=== PATIENT | female | born 1995 | race Caucasian/White ===

== ENCOUNTER 2016-09-12 15:33 | Emergency (ER) | payer OTHER ==
[2016-09-12 16:16] VITALS: BP 170/100; PULSE 105; RESP 18; TEMP 97.5
--- NOTE | 2016-09-12 17:47 | ED ---
General Adult HPI - General Chief complaint: Extremity Injury, Upper Stated complaint: Wrist Pain Time Seen by Provider: 09/12/16 17:12 Source: patient, RN notes reviewed Mode of arrival: ambulatory Limitations: no limitations - History of Present Illness Initial comments: Patient 20-year-old female who presents emergency room today with a chief complaint of left sided wrist pain. Patient does admit to pain over the distal left radius. States worse with movements of external rotation and flexion. States worse she tries to push herself up with his hand. States started a little bit 2 days ago but greatly increased yesterday. Denies any specific injury or trauma. Denies any other complaints. States she has not tried any medications at home for this. Patient denies any recent fever, chills, shortness of breath, chest pain, back pain, abdominal pain, nausea or vomiting, numbness or tingling, dysuria or hematuria, constipation or diarrhea, headaches or visual changes, or any other complaints. - Related Data Home Medications Medication Instructions Recorded Confirmed Albuterol Inhaler [Ventolin Hfa 1 - 2 puff INHALATION RT-Q6H PRN 04/05/16 Inhaler] Previous Rx's Medication Instructions Recorded Ibuprofen [Motrin] 600 mg PO Q8HR PRN #30 tab 09/06/14 Ibuprofen [Motrin] 600 mg PO Q6HR PRN #40 day 09/12/16 Allergies Allergy/AdvReac Type Severity Reaction Status Date / Time venom-honey bee Allergy Swelling Verified 09/12/16 16:16 [bee venom (honey bee)] Review of Systems ROS Statement: Those systems with pertinent positive or pertinent negative responses have been documented in the HPI. ROS Other: All systems not noted in ROS Statement are negative. Past Medical History Past Medical History: Asthma, Thyroid Disorder Additional Past Medical History / Comment(s): fx arm as a child obesity History of Any Multi-Drug Resistant Organisms: None Reported Past Surgical History: No Surgical Hx Reported Additional Past Surgical History / Comment(s): april Past Psychological History: No Psychological Hx Reported Smoking Status: Never smoker Past Alcohol Use History: None Reported Past Drug Use History: None Reported General Exam - General Exam Comments Initial Comments: General: The patient is awake and alert, in no distress, and does not appear acutely ill. Neck: The neck is supple, there is no tenderness or JVD. Cardiovascular: There is a regular rate and rhythm. No murmur, rub or gallop is appreciated. Respiratory: Lungs are clear to auscultation, respirations are non-labored, breath sounds are equal. No wheezes, stridor, rales, or rhonchi. Musculoskeletal: Normal appearance of left hand was obvious swelling bruising or deformity. Shows good range of motion all directions. Sensations are intact pulses equal bilaterally 2+. Patient does have mild tenderness over the lateral aspect of the left wrist. Neurological: A&O x 3. CN II-XII intact, There are no obvious motor or sensory deficits. Coordination appears grossly intact. Speech is normal. Skin: Skin is warm and dry and no rashes or lesions are noted. Psychiatric: Normal mood and affect. Limitations: no limitations Course Vital Signs 09/12/16 16:13 Temperature 97.5 F L Pulse Rate 105 H Respiratory 18 Rate Blood Pressure 170/100 O2 Sat by Pulse 99 Oximetry Medical Decision Making - Medical Decision Making Patient's x-ray reviewed and are unremarkable. Patient will be treated for tendinitis. Advised to ice elevate the affected area. Pako wrapped. Emergency room. He'll be discharged home with anti-inflammatories. Disposition Clinical Impression: Wrist sprain Disposition: HOME SELF-CARE Condition: Good Instructions: Wrist Injury (ED) Additional Instructions: Please use anti-inflammatories as prescribed. Please continue to ice elevate the affected area. Please follow-up with orthopedics in 7-10 days if symptoms aren't improved. Please return to emergency room if the symptoms increase or worsen or for any other concerns. Prescriptions: Ibuprofen [Motrin] 600 mg PO Q6HR PRN #40 day PRN Reason: Pain Referrals: Timmy Helms MD [Primary Care Provider] - 1-2 days Jose Angel Cabello MD [STAFF PHYSICIAN] - 1-2 days Time of Disposition: 17:56
--- NOTE | 2016-09-12 17:51 | XR ---
EXAMINATION TYPE: XR wrist complete LT DATE OF EXAM: 09/12/2016 5:34 PM COMPARISON: NONE HISTORY: Wrist pain TECHNIQUE: 4 views FINDINGS: I see no fracture nor dislocation. Joint spaces are normal. There no pathologic calcificati ons. IMPRESSION: Negative left wrist exam.
[2016-09-12] MEDS: IBUPROFEN 600 MG TAB PO STA (18:03)
== END 2016-09-12 18:13 | disposition home or self-care (01) ==
LOC: EC 15:33
DX: S63.502A Unspecified sprain of left wrist, initial encounter (principal); J45.909 Unspecified asthma, uncomplicated; Z91.030 Bee allergy status; X58.XXXA Exposure to other specified factors, initial encounter
CPT/HCPCS: 99283

== ENCOUNTER 2017-02-21 16:24 | Emergency (ER) | payer OTHER ==
[2017-02-21 16:30] VITALS: TEMP 98.5
[2017-02-21] MEDS ORDERED: ONDANSETRON 4 MG/2 ML VIAL IVP STA (16:38)
[2017-02-21] MEDS ORDERED: SODIUM CHLORIDE 0.9% 500 ML IV STA (16:38)
[2017-02-21] MEDS ORDERED: DICYCLOMINE 10 MG/ML 2 ML AMP IM STA (16:38)
[2017-02-21 16:58] LABS: Basophils % (A) 0 %; Eosinophils # (A) 0.1 k/uL (0-0.7); Eosinophils % (A) 1 %; HCT 36.5 % (34.0-46.0); HDW 2.83; HGB 11.6 gm/dL (11.4-16.0); Hypochromasia Moderate; Luc # (Auto) 0.23; Luc % (Auto) 2; Lymphocytes # (A) 1.6 k/uL (1.0-4.8); Lymphocytes % (A) 14 %; MCH 23.8 pg (25.0-35.0); MCHC 31.9 g/dL (31.0-37.0); MCV 74.5 fL (80.0-100.0); Mean Platelet Volume 6.7; Microcytosis Slight; Monocytes # (A) 0.5 k/uL (0-1.0); Monocytes % (A) 4 %; Neutrophils # (A) 9.7 k/uL (1.3-7.7); Neutrophils % (A) 80 %; WBC 12.2 k/uL (3.8-10.6); WBC (Perox) 12.43
[2017-02-21 17:00] LABS: Amorphous Sediment,Urine Occasional /hpf; Appearance,Urine Cloudy (Clear); Bacteria,Urine Occasional /hpf; Bilirubin,Urine Negative (Negative); Glucose,Urine (UA) Negative (Negative); Ketones,Urine Negative (Negative); Leukocyte Esterase,Urine Trace (Negative); Mucus,Urine Moderate /hpf; Nitrite,Urine Negative (Negative); Particle Count 8817; Protein,Urine Trace (Negative); RBC,Urine 1 /hpf (0-5); Specific Gravity,Urine 1.022 (1.001-1.035); Squamous Epithelial Cell,Urine 8 /hpf (0-4); UA Billing (MACRO vs. MICRO) MICRO; Urobilinogen,Urine <2.0 mg/dL (<2.0); WBC,Urine 15 /hpf (0-5)
[2017-02-21 17:10] LABS: ALT 25 U/L (9-52); AST 18 U/L (14-36); Alkaline Phosphatase 115 U/L (38-126); Amylase <30 U/L (30-110); Anion Gap 12 mmol/L; Blood Urea Nitrogen 9 mg/dL (7-17); Calcium 9.1 mg/dL (8.4-10.2); Carbon Dioxide 25 mmol/L (22-30); Chloride 103 mmol/L (98-107); Glucose 83 mg/dL (74-99); Non-African American GFR(MDRD) >60 (>60 ml/min/1.73 sqM); Sodium 140 mmol/L (137-145); Total Bilirubin 0.4 mg/dL (0.2-1.3); Total Protein 7.9 g/dL (6.3-8.2)
[2017-02-21] MEDS ORDERED: RX INFO: IV CONTRAST WAS GIVEN 1 EACH MISC MISCELLANE PRN (17:10)
--- NOTE | 2017-02-21 17:10 | ED ---
General Adult HPI - General Chief complaint: Abdominal Pain Stated complaint: Abd Pain Time Seen by Provider: 02/21/17 16:31 Source: patient, RN notes reviewed Mode of arrival: ambulatory Limitations: no limitations - History of Present Illness Initial comments: 21 yo female presents to the ER with cc of generalized abdominal pain. Patient states she's had this generalized abdominal pain with some nausea and diarrhea for the past week or so. Patient states is just been progressively staying the same and not going away so she was concerned. Patient denies any fever chills cough cold runny nose with this. Patient denies any one else sick with this or any history of this in the past. Patient states that she is not currently having any other symptoms at this time. Patient denies any relation to eating or drinking. Patient denies any recent fever, chills, shortness of breath, chest pain, back pain, vomiting, numbness or tingling, dysuria or hematuria, constipation, headaches or visual changes, or any other current symptoms. - Related Data Home Medications Medication Instructions Recorded Confirmed Albuterol Inhaler [Ventolin Hfa 1 - 2 puff INHALATION RT-Q6H PRN 04/05/16 Inhaler] Previous Rx's Medication Instructions Recorded Ibuprofen [Motrin] 600 mg PO Q8HR PRN #30 tab 09/06/14 Ibuprofen [Motrin] 600 mg PO Q6HR PRN #40 day 09/12/16 Ciprofloxacin HCl [Cipro] 500 mg PO Q12HR #14 tablet 02/21/17 Allergies Allergy/AdvReac Type Severity Reaction Status Date / Time venom-honey bee Allergy Swelling Verified 02/21/17 16:30 [bee venom (honey bee)] Review of Systems ROS Statement: Those systems with pertinent positive or pertinent negative responses have been documented in the HPI. ROS Other: All systems not noted in ROS Statement are negative. Past Medical History Past Medical History: Asthma, Thyroid Disorder Additional Past Medical History / Comment(s): fx arm as a child obesity History of Any Multi-Drug Resistant Organisms: None Reported Past Surgical History: No Surgical Hx Reported Additional Past Surgical History / Comment(s): april Past Psychological History: No Psychological Hx Reported Smoking Status: Never smoker Past Alcohol Use History: None Reported Past Drug Use History: None Reported General Exam - General Exam Comments Initial Comments: General: The patient is awake and alert, in no distress, and does not appear acutely ill. Eye: Pupils are equal, round. Ears, nose, mouth and throat: There are moist mucous membranes. Neck: The neck is supple, there is no tenderness. Cardiovascular: There is a regular rate and rhythm. No murmur, rub or gallop is appreciated. Respiratory: Lungs are clear to auscultation, respirations are non-labored, breath sounds are equal. No wheezes, stridor, rales, or rhonchi. Gastrointestinal: Soft, non-distended, non-tender abdomen without masses or organomegaly noted. There is no rebound or guarding present. No CVA tenderness. Bowel sounds are unremarkable. Back: There is no tenderness to palpation in the midline. There is no obvious deformity. No rashes noted. Musculoskeletal: Normal ROM, no tenderness, There is no pedal edema. There is no calf tenderness or swelling. Sensation intact. Pulses equal bilaterally 2+. Neurological: CN II-XII intact, There are no obvious motor or sensory deficits. Coordination appears grossly intact. Speech is normal. Skin: Skin is warm and dry and no rashes or lesions are noted. Psychiatric: Cooperative, appropriate mood & affect, normal judgment. Limitations: no limitations Course Vital Signs 02/21/17 02/21/17 16:27 18:02 Temperature 98.5 F Pulse Rate 107 H 92 Respiratory 20 16 Rate Blood Pressure 178/78 135/69 O2 Sat by Pulse 96 99 Oximetry Medical Decision Making - Medical Decision Making 21-year-old female presents emergency Department chief complaint of generalized abdominal pain.at this time patient's urine is suspicious for possible UTI. We will start the patient on Cipro for home. We did discuss follow-up return parameters all patient's questions. She stated she understood and she was given splint. She'll be discharged. - Lab Data Result diagrams: 02/21/17 16:46 02/21/17 16:46 Lab Results 02/21/17 02/21/17 02/21/17 Range/Units 16:46 16:46 16:46 WBC 12.2 H (3.8-10.6) k/uL RBC 4.90 (3.80-5.40) m/uL Hgb 11.6 (11.4-16.0) gm/dL Hct 36.5 (34.0-46.0) % MCV 74.5 L (80.0-100.0) fL MCH 23.8 L (25.0-35.0) pg MCHC 31.9 (31.0-37.0) g/dL RDW 15.0 (11.5-15.5) % Plt Count 482 H (150-450) k/uL Neutrophils % 80 % Lymphocytes % 14 % Monocytes % 4 % Eosinophils % 1 % Basophils % 0 % Neutrophils # 9.7 H (1.3-7.7) k/uL Lymphocytes # 1.6 (1.0-4.8) k/uL Monocytes # 0.5 (0-1.0) k/uL Eosinophils # 0.1 (0-0.7) k/uL Basophils # 0.0 (0-0.2) k/uL Hypochromasia Moderate Microcytosis Slight Sodium 140 (137-145) mmol/L Potassium 4.0 (3.5-5.1) mmol/L Chloride 103 (98-107) mmol/L Carbon Dioxide 25 (22-30) mmol/L Anion Gap 12 mmol/L BUN 9 (7-17) mg/dL Creatinine 0.62 (0.52-1.04) mg/dL Est GFR (MDRD) Af Amer >60 (>60 ml/min/1.73 sqM) Est GFR (MDRD) Non-Af >60 (>60 ml/min/1.73 sqM) Glucose 83 (74-99) mg/dL Calcium 9.1 (8.4-10.2) mg/dL Total Bilirubin 0.4 (0.2-1.3) mg/dL AST 18 (14-36) U/L ALT 25 (9-52) U/L Alkaline Phosphatase 115 (38-126) U/L Total Protein 7.9 (6.3-8.2) g/dL Albumin 4.3 (3.5-5.0) g/dL Amylase <30 L (30-110) U/L Lipase 28 (23-300) U/L Urine Color Urine Appearance (Clear) Urine pH (5.0-8.0) Ur Specific [place] (1.001-1.035) Urine Protein (Negative) Urine Glucose (UA) (Negative) Urine Ketones (Negative) Urine Blood (Negative) Urine Nitrite (Negative) Urine Bilirubin (Negative) Urine Urobilinogen (<2.0) mg/dL Ur Leukocyte Esterase (Negative) Urine RBC (0-5) /hpf Urine WBC (0-5) /hpf Ur Squamous Epith Cells (0-4) /hpf Amorphous Sediment (None) /hpf Urine Bacteria (None) /hpf Urine Mucus (None) /hpf Urine HCG, Qual Not Detected (Not Detectd) 02/21/17 Range/Units 16:46 WBC (3.8-10.6) k/uL RBC (3.80-5.40) m/uL Hgb (11.4-16.0) gm/dL Hct (34.0-46.0) % MCV (80.0-100.0) fL MCH (25.0-35.0) pg MCHC (31.0-37.0) g/dL RDW (11.5-15.5) % Plt Count (150-450) k/uL Neutrophils % % Lymphocytes % % Monocytes % % Eosinophils % % Basophils % % Neutrophils # (1.3-7.7) k/uL Lymphocytes # (1.0-4.8) k/uL Monocytes # (0-1.0) k/uL Eosinophils # (0-0.7) k/uL Basophils # (0-0.2) k/uL Hypochromasia Microcytosis Sodium (137-145) mmol/L Potassium (3.5-5.1) mmol/L Chloride (98-107) mmol/L Carbon Dioxide (22-30) mmol/L Anion Gap mmol/L BUN (7-17) mg/dL Creatinine (0.52-1.04) mg/dL Est GFR (MDRD) Af Amer (>60 ml/min/1.73 sqM) Est GFR (MDRD) Non-Af (>60 ml/min/1.73 sqM) Glucose (74-99) mg/dL Calcium (8.4-10.2) mg/dL Total Bilirubin (0.2-1.3) mg/dL AST (14-36) U/L ALT (9-52) U/L Alkaline Phosphatase (38-126) U/L Total Protein (6.3-8.2) g/dL Albumin (3.5-5.0) g/dL Amylase (30-110) U/L Lipase (23-300) U/L Urine Color Yellow Urine Appearance Cloudy H (Clear) Urine pH 6.0 (5.0-8.0) Ur Specific [place] 1.022 (1.001-1.035) Urine Protein Trace H (Negative) Urine Glucose (UA) Negative (Negative) Urine Ketones Negative (Negative) Urine Blood Negative (Negative) Urine Nitrite Negative (Negative) Urine Bilirubin Negative (Negative) Urine Urobilinogen <2.0 (<2.0) mg/dL Ur Leukocyte Esterase Trace H (Negative) Urine RBC 1 (0-5) /hpf Urine WBC 15 H (0-5) /hpf Ur Squamous Epith Cells 8 H (0-4) /hpf Amorphous Sediment Occasional H (None) /hpf Urine Bacteria Occasional H (None) /hpf Urine Mucus Moderate H (None) /hpf Urine HCG, Qual (Not Detectd) - Radiology Data Radiology results: report reviewed, image reviewed Disposition Clinical Impression: UTI (urinary tract infection) Disposition: HOME SELF-CARE Condition: Stable Instructions: Urinary Tract Infection in Women (ED) Additional Instructions: Please use medication as discussed. Please follow up with family doctor if symptoms have not improved over the next two days. Please return to the emergency room if your symptoms increase or worsen or for any other concerns. Prescriptions: Ciprofloxacin HCl [Cipro] 500 mg PO Q12HR #14 tablet Referrals: Timmy Helms MD [Primary Care Provider] - 1-2 days Time of Disposition: 18:12
[2017-02-21 18:02] VITALS: BP 135/69; PULSE 92; RESP 16
--- NOTE | 2017-02-21 18:09 | CT ---
EXAMINATION TYPE: CT abdomen pelvis w con DATE OF EXAM: 02/21/2017 COMPARISON: NONE HISTORY: ABDOMINAL PAIN WITH NAUSEA. CT DLP: 4239.6 mGycm Automated exposure control for dose reduction was used. TECHNIQUE: Helical acquisition of images was performed from the lung bases through the pelvis. CONTRAST: Performed without Oral Contrast and with IV Contrast, patient injected with 100 mL of Omnipaque 300. FINDINGS: Lung bases are clear. There is no pleural effusion. Heart size is normal. Liver appears normal. Spleen is large and measures 16 cm in length. There is no sign of pancreatic ma ss. Gallbladder appears normal. Bile ducts are not dilated. There is no adrenal mass. The kidneys show satisfactory contrast opacification. There is no hydroneph rosis. Ureters are not dilated. I see no intestinal wall thickening. There are no dilated loops. Bladder distends smoothly. There is no evidence of a pelvic mass. There are bilateral 1.5 to 2 cm ovarian cysts. Appendix is not definite ly seen. There is no sign of appendicitis. There is mild subcutaneous edema over the posterior lower lumbar spine. IMPRESSION: SPLENOMEGALY. NO FOCAL LIVER DEFECT.
== END 2017-02-21 18:35 | disposition home or self-care (01) ==
LOC: EC 16:24
DX: N39.0 Urinary tract infection, site not specified (principal); R10.84 Generalized abdominal pain; R19.7 Diarrhea, unspecified; R11.0 Nausea; Z91.030 Bee allergy status
CPT/HCPCS: 36415; 80053; 82150; 83690; 85025; 81001; 81025; 74177; 99284; 96374; 96372; J0500; J2405; Q9967

== ENCOUNTER → 2018-06-25 | Outpatient (CLI) | payer OTHER ==
[2018-06-25 19:36] LABS: Iron Saturation 6.14 (12.00-45.00)
== END | disposition home or self-care (01) ==
LOC: LABWHC1 14:00
PROVIDERS: ATTEND Nurse Practitioner
DX: D50.0 Iron deficiency anemia secondary to blood loss (chronic) (principal)
CPT/HCPCS: 36415; 82728; 83540; 83550

== ENCOUNTER → 2018-06-26 | Outpatient (CLI) | payer OTHER ==
--- NOTE | 2018-06-27 10:56 | US ---
EXAMINATION TYPE: US pelvis complete transvag DATE OF EXAM: 06/26/2018 COMPARISON: CT 2017 CLINICAL HISTORY: Z97.5 IUD placement. Large body habitus limited exam morbid obesity TECHNIQUE: Transvaginal (TV) and Transabdominal (TA) . Transabdominal sonographic images of the pel vis were acquired. Transvaginal sonographic images were medically necessary to better assess the fol lowing anatomy: IUD placement Date of LMP: 06/19/2018 EXAM MEASUREMENTS: Uterus: 7.3 x 2.7 x 3.7 cm Endometrial Stripe: 0.3 cm Right Ovary: 1.8 x 1.5 x 1.8 cm Left Ovary: 1.3 x 1.6 cm 1. Uterus: small nabothian cyst 0.4 x0.2 x 0.3 cm 2. Endometrium: wnl 3. Right Ovary: Multiple follicles with a dominant follicle measuring 1.0 x 1.0 x 0.7 cm 4. Left Ovary: Obscured by overlying bowel gas 5. Bilateral Adnexa: Obscured by overlying bowel gas 6. Posterior cul-de-sac: wnl very limited visualization do to morbid obesity . IMPRESSION: The wood cabinetmaker notes the exam is limited secondary to patient body habitus. Despite orellana svaginal imaging the intrauterine device is not clearly identified. Pelvic radiograph could be perfor med in further attempt to evaluate the intrauterine device present.
== END | disposition home or self-care (01) ==
LOC: RADUSWWP 15:39 → EEVIPCON 16:20
PROVIDERS: ATTEND Obstetrics & Gynecology
DX: Z30.431 Encounter for routine checking of intrauterine contraceptive device (principal)
CPT/HCPCS: 76830; 76856

== ENCOUNTER → 2018-07-11 | Outpatient (CLI) | payer OTHER ==
--- NOTE | 2018-07-11 15:35 | XR ---
EXAMINATION TYPE: XR abdomen 1V DATE OF EXAM: 07/11/2018 COMPARISON: NONE HISTORY: Pain TECHNIQUE: Single supine KUB image of the abdomen is obtained FINDINGS: Small bowel demonstrates no evidence for dilatation or air fluid levels. Gas and fecal material is seen in non-distended colon. No convincing evidence for pneumoperitoneum. No unusual calcifications. The lung bases are clear. The osseous structures are intact. IMPRESSION: 1. Overall nonobstructive bowel gas pattern.
== END | disposition home or self-care (01) ==
LOC: RADXRMAIN 13:24
PROVIDERS: ATTEND Obstetrics & Gynecology
DX: T83.32XA Displacement of intrauterine contraceptive device, initial encounter (principal)
CPT/HCPCS: 74018

== ENCOUNTER → 2020-07-22 | Outpatient (CLI) | payer OTHER ==
--- NOTE | 2020-07-22 13:13 | XR ---
EXAMINATION TYPE: XR abdomen 1V DATE OF EXAM: 07/22/2020 Comparison: 07/11/2018 Clinical History: 24-year-old female R11.2 nausea w/vomiting Findings: Supine imaging limited for assessment of free air. Only minimal stool within the right side of the ab domen. No dilated small bowel loops. No suspicious calcification seen. Impression: Only minimal stool in the right side of the abdomen. No evidence for bowel obstruction.
== END | disposition home or self-care (01) ==
LOC: RADXRMAIN 11:50 → EEVIPCON 11:50
PROVIDERS: ATTEND Nurse Practitioner
DX: R19.5 Other fecal abnormalities (principal)
CPT/HCPCS: 74018